=== PATIENT | female | born 1960 | race Caucasian/White ===

== ENCOUNTER → 2019-02-02 17:19 | Outpatient (CLI) | payer OTHER, SELFPAY ==
--- NOTE | 2019-02-02 17:20 | DI.MG.S_ITS ---
BILATERAL DIGITAL SCREENING MAMMOGRAM 3D/2D WITH CAD: 02/02/2019 CLINICAL: Routine screening. Family history of breast cancer. Comparison is made to exams dated: 02/13/2014 mammogram, 06/19/2008 mammogram, and 01/22/2006 mammogram - [facility]. The tissue of both breasts is extremely dense, which lowers the sensitivity of mammography. Current study was also evaluated with a Computer Aided Detection (CAD) system. No significant masses, calcifications, or other findings are seen in either breast. There has been no significant interval change. IMPRESSION: NEGATIVE There is no mammographic evidence of malignancy. A 1 year screening mammogram is recommended. This exam was interpreted at Station ID: [id number]. NOTE: For mammograms, a report in lay terms will be sent to the patient. Approximately 15% of breast malignancies will not be visualized mammographically. In the management of a palpable breast mass, a negative mammogram must not discourage biopsy of a clinically suspicious lesion. Electronically Signed By: Laney duenas/rose:02/03/2019 11:24:03 letter sent: Normal Exam ACR BI-RADS Category 1: Negative 3341F
== END ==
PROVIDERS: Family Provider Nurse Practitioner; PCP Nurse Practitioner; Visit Provider Nurse Practitioner Family
DX: Z12.31 Encounter for screening mammogram for malignant neoplasm of breast (principal); Z80.3 Family history of malignant neoplasm of breast
CPT/HCPCS: 77063; 77067

== ENCOUNTER → 2019-05-14 10:17 | Outpatient (CLI) | payer OTHER, SELFPAY | PROVIDERS: Family Provider Nurse Practitioner; PCP Nurse Practitioner; Visit Provider Nurse Practitioner | DX: R30.0 Dysuria (principal) | CPT/HCPCS: 87086 ==

== ENCOUNTER → 2020-08-13 09:53 | Outpatient (CLI) | payer OTHER, SELFPAY ==
[2020-08-13] MEDS: COVID-19 VACC #1, MRNA(MOD) 100 MCG/0.5 ML VIAL IM (10:02)
== END ==
PROVIDERS: Family Provider Nurse Practitioner; PCP Nurse Practitioner; Visit Provider Internal Medicine
DX: Z23 Encounter for immunization (principal)
CPT/HCPCS: 0011A; 91301

== ENCOUNTER → 2020-09-11 12:00 | Outpatient (CLI) | payer OTHER, SELFPAY ==
[2020-09-11] MEDS: COVID-19 VACC #2, MRNA(MOD) 100 MCG/0.5 ML VIAL IM (12:10)
== END ==
PROVIDERS: Family Provider Nurse Practitioner; PCP Nurse Practitioner; Visit Provider Internal Medicine
DX: Z23 Encounter for immunization (principal)
CPT/HCPCS: 0012A; 91301

== ENCOUNTER → 2021-02-14 17:49 | Outpatient (CLI) | payer OTHER, SELFPAY ==
--- NOTE | 2021-02-14 | DI.MG.S_ITS ---
BILATERAL DIGITAL SCREENING MAMMOGRAM 3D/2D WITH CAD: 02/14/2021 CLINICAL: Routine screening. Family history of breast cancer. Comparison is made to exams dated: 02/02/2019 mammogram, 02/13/2014 mammogram, and 06/19/2008 mammogram - [facility]. The tissue of both breasts is extremely dense, which lowers the sensitivity of mammography. Current study was also evaluated with a Computer Aided Detection (CAD) system. No significant masses, calcifications, or other findings are seen in either breast. There has been no significant interval change. IMPRESSION: NEGATIVE There is no mammographic evidence of malignancy. A 1 year screening mammogram is recommended. This exam was interpreted at Station ID: [id number]. NOTE: For mammograms, a report in lay terms will be sent to the patient. Approximately 15% of breast malignancies will not be visualized mammographically. In the management of a palpable breast mass, a negative mammogram must not discourage biopsy of a clinically suspicious lesion. Electronically Signed By: Ameya liu/rose:02/17/2021 07:14:43 letter sent: Normal Exam ACR BI-RADS Category 1: Negative 3341F
== END ==
PROVIDERS: Family Provider Nurse Practitioner; PCP Nurse Practitioner Family; Referring Provider Nurse Practitioner Family; Visit Provider Nurse Practitioner Family
DX: Z12.31 Encounter for screening mammogram for malignant neoplasm of breast (principal); Z80.3 Family history of malignant neoplasm of breast
CPT/HCPCS: 77063; 77067

== ENCOUNTER → 2021-03-29 16:28 | Outpatient (CLI) | payer OTHER, SELFPAY ==
[2021-03-29 18:06] LABS: COVID19 -Nasal RAPID Negative (Negative)
== END ==
PROVIDERS: Family Provider Nurse Practitioner; PCP Nurse Practitioner Family; Visit Provider Physician Assistant
DX: Z20.822 Contact with and (suspected) exposure to COVID-19 (principal); R09.81 Nasal congestion
CPT/HCPCS: 87635

== ENCOUNTER 2022-05-07 11:27 | Emergency (ER) | payer OTHER, SELFPAY ==
[2022-05-07 11:30] VITALS: BP 78/50; PULSE 60; RESP 15; TEMP 35.6; O2SAT 96; BMI 20.9
--- NOTE | 2022-05-07 11:34 | DI.RAD.S_ITS ---
PROCEDURE: XR WRIST LT MIN 3V INDICATIONS: fall wrist in jury TECHNIQUE: 3 views of the wrist were acquired. COMPARISON: None. FINDINGS: Bones: There is a comminuted, displaced, angulated, intra-articular fracture of the distal radius. There is a minimally displaced impacted radial styloid fracture. Soft tissues: No suspicious soft tissue calcifications. IMPRESSION: Distal radial and ulnar fractures as above. Dictated by: Laney Lopez M.D. on 05/07/2022 at 12:07 Approved by: Laney Lopez M.D. on 05/07/2022 at 12:07
[2022-05-07 12:09] VITALS: BP 109/64
[2022-05-07 14:13] VITALS: BP 126/83; PULSE 78; RESP 18; O2SAT 99
[2022-05-07 14:15] VITALS: PULSE 75
--- NOTE | 2022-05-07 15:25 | DI.RAD.S_ITS ---
PROCEDURE: XR WRIST LT 2V INDICATIONS: wrist reduction TECHNIQUE: 2 views of the wrist were acquired. COMPARISON: [facility], CR, XR WRIST LT MIN 3V, 05/07/2022, 11:30. FINDINGS: Bones: There has been interval partial reduction of the angulated comminuted distal left radial fracture. Fracture fragments are in closer approximation to anatomic alignment when compared with the prior study. Soft tissues: No suspicious soft tissue calcifications. IMPRESSION: Interval reduction of the displaced comminuted distal radial fracture. Dictated by: Laney Lopez M.D. on 05/07/2022 at 16:16 Approved by: Laney Lopez M.D. on 05/07/2022 at 16:17
--- NOTE | 2022-05-07 15:44 | ED_ITS ---
HPI - Extremity Injury (Upper) General Chief Complaint: Extremity Injury, Upper Stated Complaint: thinks she broke LT arm Time Seen by Provider: 05/07/22 14:15 Source: patient Mode of arrival: Ambulatory History of Present Illness HPI narrative: 61-year-old female nonsmoker with history of hyperlipidemia and depression presents with a friend and a chief complaint of injury suffered as a consequence of a ground level fall earlier today. She denies any prodromal symptoms such as dizziness, weakness or lightheadedness and states that she lost her balance while her left hand was caught up in the handle of a yard waste bin. As a result she fell forward onto an outstretched wrist and has pain and obvious deformity in this wrist. She denies any head, neck or back injury. She has no pain in her shoulder or elbow. Occasionally she has some tingling in the tips of her fingers. Her pain is worse when she moves and improves with rest. She denies any chest pain, shortness of breath or cough. She is had no nausea, vomiting or diarrhea Related Data Home Medications Medication Instructions Recorded Confirmed buspirone 5 mg tablet 10 mg PO DAILY 05/14/19 03/29/21 trazodone 50 mg tablet 25 mg PO HS 05/14/19 03/29/21 Previous Rx's Medication Instructions Recorded bupropion HCl 150 mg 24 hr tablet, 150 mg PO QDAY #90 tabs 12/29/16 extended release (Wellbutrin XL) fluticasone propionate 50 2 spray intranasal DAILY ##16 12/29/16 mcg/actuation nasal spray,suspension levalbuterol tartrate 45 2 puff INH Q4HP PRN #1 inh 12/29/16 mcg/actuation aerosol inhaler (Xopenex HFA) hydrocodone 5 mg-acetaminophen 325 1 tab PO Q4-6H PRN pain #20 tabs 05/07/22 mg tablet ondansetron 4 mg disintegrating 4 mg PO TID-QID PRN nausea and 05/07/22 tablet vomiting #10 tabs Allergies Allergy/AdvReac Type Severity Reaction Status Date / Time iodine Allergy Mild FROM Verified 05/07/22 11:29 SEAFOOD, RASH, EDEMA, GI UPSET latex Allergy Mild RASH Verified 05/07/22 11:29 Review of Systems Review of Systems Narrative: GENERAL: Denies chills, fatigue, malaise, fever, sweats. HEENT: Denies sinus pain, ear pain, sore throat, difficulty swallowing, dizziness. RESPIRATORY: Denies dyspnea, cough, wheezing, hemoptysis, sputum. CARDIOVASCULAR: Denies chest pain, palpitations, orthopnea, edema, GASTROINTESTINAL: Denies nausea, vomiting, abdominal pain, diarrhea, constipation, melena. : Denies dysuria, frequency, incontinence, hematuria, urinary retention. MUSCULOSKELETAL: See HPI SKIN: Denies rash, skin lesions, or other NEUROLOGIC: Denies weakness, headache, numbness, change in speech, confusion, seizures, incoordination. PSYCHIATRIC: No concerning psychosocial issues. 12 point review of systems is negative except for those stated above Patient History Medical History (Updated 05/07/22 @ 15:56 by Steven Delgado DO) Anorexia nervosa (1969) Anxiety (1970) Arthritis (2006) Asthma (1995) Chicken pox (1964) Chronic back pain (1972) Depression (1970) Frequent UTI (~1979) Genital warts (1983) Measles (1965) Mumps (1966) Osteoporosis (2013) Recurrent sinusitis (1995) Scoliosis (1972) Substance abuse (1975) Surgical History Anesthesia History of colonoscopy (02/12/14) History of dilation and curettage (12/31/14) History of elective History of shoulder surgery (03/2006) History of third molar tooth extraction Status post breast lumpectomy (03/2006) Status post surgery (12/31/14) Family History Father Heart disease COPD (chronic obstructive pulmonary disease) Mother Diabetes mellitus Brother No problems noted. Sister No problems noted. Sister No problems noted. Sister No problems noted. Sister No problems noted. Sister No problems noted. Grandfather No problems noted. Grandmother No problems noted. Grandfather No problems noted. Grandmother Cancer Social History Smoking Status: Former smoker Smoking Status: Former smoker alcohol intake frequency: holidays/special occasions only Substance Use Type: does not use Exam Narrative Exam Narrative: GENERAL: [61] year old patient appears stated age. Well-developed patient, in mild distress. Clutching her left wrist HEAD: Atraumatic. Normocephalic. EYES: Pupils equal round and reactive. Extraocular motions intact. No scleral icterus. No injection or drainage. ENT: Nose without bleeding, purulent drainage. Throat without erythema, tonsillar hypertrophy or exudate. Airway patent. NECK: Trachea midline. Non tender CARDIOVASCULAR: Regular rate and rhythm without murmurs, gallops, or rubs. RESPIRATORY: Clear to auscultation. Breath sounds equal bilaterally. No wheezes, rales, or rhonchi. GASTROINTESTINAL: Abdomen soft, non-tender, nondistended. EXTREMITIES: Obvious deformity of left wrist consistent with distal radius fracture, tenderness over this region, this is closed, isolated and neurovascularly intact, no pain in elbow or shoulder, compartments soft BACK: Nontender without deformity or crepitance. No flank tenderness. NEURO: AOx3. SKIN: No rash or erythema of visible areas Initial Vital Signs Initial Vital Signs: Vital Signs Temperature 96.0 F L 05/07/22 11:30 Pulse Rate 60 05/07/22 11:30 Respiratory Rate 15 05/07/22 11:30 Blood Pressure 78/50 L 05/07/22 11:30 Pulse Oximetry 96 05/07/22 11:30 Oxygen Delivery Method 05/07/22 11:30 Procedures Nerve Block Nerve Block 1: Time out performed: Yes Local Anesthetic: bupivacaine 0.25% and with epi Amount of anesthesia used (mL): 6 Side: left Nerve Blocks: hematoma block Procedure Successful: Yes Patient Tolerated Procedure: Well Complications: none Orthopedic Fracture Reduction Fracture #1: Time Out Performed: Yes Side: left Fracture Reduction Location: radius and ulna Analgesia: hematoma block Technique: direct manipulation and traction/counter-traction Post Reduction X-rays Demonstrate: acceptable reduction Post-reduction neuro exam: intact Post-reduction vascular exam: intact Splint Applied: Yes Patient Tolerated Procedure: Well Orthopedic Splinting/Casting Injury #1: Side: left Upper Extremity Injury Location: wrist Upper Extremity Immobilizer: sugar tong splint Post splinting neuro exam: intact Post splinting vascular exam: intact Placed by: Nursing Course Orders Ordered: ED Orders 05/07/22 11:34 XR wrist LT min 3V Stat 05/07/22 15:25 XR wrist LT 2V Stat Vital Signs Vital signs: Vital Signs - 8 hr 05/07/22 11:30 05/07/22 12:09 12/15/22 14:13 Temperature 96.0 F L Pulse Rate 60 78 Pulse Rate [Left Radial] Respiratory Rate 15 18 Blood Pressure 78/50 L 109/64 126/83 Pulse Oximetry 96 99 Oxygen Delivery Method Room Air Room Air 05/07/22 14:15 Temperature Pulse Rate Pulse Rate [Left Radial] 75 Respiratory Rate Blood Pressure Pulse Oximetry Oxygen Delivery Method MDM - Extremity Injury (Upper) MDM Narrative Medical decision making narrative: 61-year-old female nonsmoker with history of hyperlipidemia and depression presents with a friend and a chief complaint of injury suffered as a consequence of a ground level fall earlier today. Imaging reviewed: obvious fracture, postreduction films demonstrate improvement, however patient will likely still needs surgery, she understands this Patient splinted and placed in sling. She remains neurovascularly intact. This injury is closed, compartments are soft, pain well controlled Patient's symptoms improved over duration of stay with above-stated therapies. Findings and discharge diagnosis discussed with patient/family followed by verbalization of understanding Return precautions discussed with patient/family whom verbalize understanding of diagnosis and plan Discharge Plan Departure Patient Disposition: Home Clinical Impression: Closed fracture distal radius and ulna Instructions: DI for Distal Radius Fracture Activity Restrictions/Additional Instructions: *You have been diagnosed with [left distal radius and ulna fractures] *What to do: *Please continue to take your regular medications as directed. [x ] New medication prescriptions sent to your pharmacy: [[facility] ] [ ] New medication written as a paper prescription [x] Tylenol and occasional Motrin for pain *Please follow up with [ Lita] of [facility] in 2-3 days, call for an appointment. Let them know you were seen in the Emergency Department and that we ask that you be seen in follow up. We will electronically transmit a record of today's note if your PCP is in our system *Return to Emergency Department if you should have any new, worsening or concerning symptoms, such as [worsening pain, significant swelling, cold extremities, numbness, tingling, weakness or other bothersome symptoms Splint Care: Keep splint clean and dry. Elevated affected body part to decrease swelling. OK to use ice pack on the affected body part. Use for 15-20 minutes each time, for 5-6x per day. If you develop worsening pain, numbness, tingling, discoloration of the affected body part, loosen the splint by loosening the MAYRA wrap, and either see your doctor for an urgent re-assessment, or return to the Emergency Department. Return to the Emergency Department for any new or worsening symptoms. Prescriptions: New hydrocodone-acetaminophen 5-325 mg tablet 1 tab PO Q4-6H PRN (Reason: pain) Qty: 20 0RF ondansetron 4 mg tablet,disintegrating 4 mg PO TID-QID PRN (Reason: nausea and vomiting) Qty: 10 0RF No Action buspirone 5 mg tablet 10 mg PO DAILY trazodone 50 mg tablet 25 mg PO HS fluticasone propionate 16 GM spray,suspension 2 spray Intranasal DAILY Qty: 16 3RF bupropion HCl [Wellbutrin XL] 150 MG tablet extended release 24 hr 150 mg PO QDAY Qty: 90 3RF levalbuterol tartrate [Xopenex HFA] 45 MCG/INH HFA aerosol inhaler 2 puff INH Q4HP PRNQty: 1 3RF Referrals: Lisha London MD [Physician] - Ophelia Nicole ARNP [Primary Care Provider] - Visit Report Forms: Patient Portal/API
[2022-05-07 16:06] VITALS: BP 113/74; PULSE 61; RESP 18; O2SAT 96
== END 2022-05-07 16:10 | disposition home or self-care (01) ==
PROVIDERS: Emergency Provider Emergency Medicine; Family Provider Nurse Practitioner; PCP Nurse Practitioner Family
DX: S52.502A Unspecified fracture of the lower end of left radius, initial encounter for closed fracture (principal); S52.602A Unspecified fracture of lower end of left ulna, initial encounter for closed fracture; W18.30XA Fall on same level, unspecified, initial encounter
CPT/HCPCS: 25605; 29105; 64450; 73100; 73110; 99283

== ENCOUNTER → 2022-06-10 12:46 | Outpatient (CLI) | payer OTHER, SELFPAY ==
--- NOTE | 2022-06-10 | DI.MG.S_ITS ---
BILATERAL DIGITAL SCREENING MAMMOGRAM 3D/2D WITH CAD: 06/10/2022 CLINICAL: Routine screening. Family history of breast cancer. Comparison is made to exams dated: 02/14/2021 mammogram, 02/02/2019 mammogram, and 02/13/2014 mammogram - [facility]. Both breasts are heterogeneously dense, which may obscure small masses (category c / 51-75% glandular tissue). Current study was also evaluated with a Computer Aided Detection (CAD) system. There are benign post operative findings in the right breast. No significant masses, calcifications, or other findings are seen in either breast. There has been no significant interval change. IMPRESSION: BENIGN There is no mammographic evidence of malignancy. A 1 year screening mammogram is recommended. Based on Tyrer-Cuzick model (a risk assessment model), the patient's lifetime risk is 20.1% and her 10 year risk is 9.1%. If a patient has an elevated risk, a more comprehensive evaluation should be considered and/or a referral to a genetic counselor. The [place] [employer], [place] [employer], and NCCN Guidelines advise the consideration of Breast MRI as an adjunct to screening mammography in patients whose Lifetime risk to develop breast cancer is 20% or higher. This exam was interpreted at Station ID: [id number]. NOTE: For mammograms, a report in lay terms will be sent to the patient. Approximately 15% of breast malignancies will not be visualized mammographically. In the management of a palpable breast mass, a negative mammogram must not discourage biopsy of a clinically suspicious lesion. Electronically Signed By: Laney duenas/rose:06/10/2022 15:03:25 copy to: Ophelia Nicole letter sent: Normal Exam ACR BI-RADS Category 2: Benign Finding(s) 3342F
== END ==
PROVIDERS: Family Provider Nurse Practitioner; PCP Nurse Practitioner; Referring Provider Nurse Practitioner; Visit Provider Nurse Practitioner
DX: Z12.31 Encounter for screening mammogram for malignant neoplasm of breast (principal); Z80.3 Family history of malignant neoplasm of breast
CPT/HCPCS: 77063; 77067

== ENCOUNTER → 2022-07-06 12:14 | Outpatient (CLI) | payer OTHER, SELFPAY | PROVIDERS: Family Provider Nurse Practitioner; PCP Nurse Practitioner; Referring Provider Orthopaedic Surgery Foot and Ankle Surgery; Visit Provider Orthopaedic Surgery Foot and Ankle Surgery | DX: M81.0 Age-related osteoporosis without current pathological fracture (principal); Z87.310 Personal history of (healed) osteoporosis fracture; Z78.0 Asymptomatic menopausal state | CPT/HCPCS: 77080 ==

== ENCOUNTER → 2023-04-05 07:56 | Outpatient (CLI) | payer OTHER, SELFPAY ==
[2023-04-05 08:55] LABS: Add Manual Diff / Slide Review NO; Basophils Absolute Auto 100 /uL (0-100); Basophils Percent Auto 0.9 % (0-2); Eosinophils Absolute Auto 0 /uL (0-450); Eosinophils Percent Auto 0.6 % (2-4); Hematocrit 39.6 % (36-46); Hemoglobin 13.3 g/dL (12.0-16.0); Lymphocytes Absolute Auto 2100 /uL (1100-4500); Mean Corpuscular HGB Conc 33.7 % (30-36); Mean Corpuscular Hemoglobin 32.2 PG (26-34); Mean Corpuscular Volume 95.6 fL (80-100); Monocytes Absolute Auto 600 /uL (0-900); Monocytes Percent Auto 9.1 % (3-14); Neutrophils Absolute Auto 3900 /uL (1500-7000); Neutrophils Percent Auto 58.4 % (50-75); Platelet Count 512 X10^3/uL (150-400); Red Blood Cell Count 4.15 X10^6/uL (4.0-5.2); Red Cell Distribution Width 12.9 % (11.6-14.8); White Blood Cell Count 6.7 X10^3/uL (4.5-11.0)
[2023-04-05 09:06] LABS: Hemoglobin A1C% w Est Avg Glu 5.6 % (4.0-6.0)
[2023-04-05 09:45] LABS: Alanine Aminotransferase 14 IU/L (<35); Albumin Globulin Ratio 1.3 (1.0-2.8); Alkaline Phosphatase 63 U/L (38-126); Aspartate Aminotransferase 24 IU/L (14-36); BUN Creatinine Ratio 18.1 (6-22); Bilirubin Total 0.7 mg/dL (0.2-1.3); Blood Urea Nitrogen 15 mg/dL (7-17); Calcium 9.9 mg/dL (8.4-10.2); Carbon Dioxide 30 mmol/L (22-32); Chloride 101 mmol/L (98-107); Estimated Glomerular Filt Rate > 60 mL/min (>60); Globulin 3.1 g/dL (1.7-4.1); Glucose 85 mg/dL (80-110); HEMOLYSIS < 15 (0-50); Potassium 4.8 mmol/L (3.4-5.1); Sodium 138 mmol/L (137-145); Total Protein 7.1 g/dL (6.3-8.2)
== END ==
PROVIDERS: Family Provider Nurse Practitioner; PCP Nurse Practitioner; Referring Provider Ophthalmology; Visit Provider Ophthalmology
DX: H53.8 Other visual disturbances (principal); Z83.3 Family history of diabetes mellitus; H53.9 Unspecified visual disturbance; H04.123 Dry eye syndrome of bilateral lacrimal glands
CPT/HCPCS: 36415; 80053; 83036; 84443; 85025; 86140

== ENCOUNTER → 2023-07-23 09:12 | Outpatient (CLI) | payer OTHER, SELFPAY ==
--- NOTE | 2023-07-23 09:13 | DI.MG.S_ITS ---
BILATERAL DIGITAL SCREENING MAMMOGRAM 3D/2D WITH CAD: 07/23/2023 CLINICAL: Routine screening. Family history of breast cancer. Comparison is made to exams dated: 06/10/2022 mammogram, 02/14/2021 mammogram, and 02/02/2019 mammogram - [facility]. Both breasts are heterogeneously dense, which may obscure small masses (category c / 51-75% glandular tissue). Current study was also evaluated with a Computer Aided Detection (CAD) system. There is a focal asymmetry in the left breast at 5 o'clock anterior depth. No other significant masses, calcifications, or other findings are seen in either breast. IMPRESSION: INCOMPLETE: NEEDS ADDITIONAL IMAGING EVALUATION The focal asymmetry in the left breast is indeterminate. Additional views with possible ultrasound are recommended. Based on the Tyrer Cuzick model (a risk assessment model) the patient's lifetime risk is 19.6% and her 10 year risk is 9.1%. According to the ACR, ACS, and NCCN guidelines, an annual breast MRI exam along with mammogram is recommended if the patient's lifetime risk is 20% or greater. This exam was interpreted at Station ID: [id number]. NOTE: For mammograms, a report in lay terms will be sent to the patient. Approximately 15% of breast malignancies will not be visualized mammographically. In the management of a palpable breast mass, a negative mammogram must not discourage biopsy of a clinically suspicious lesion. Electronically Signed By: Laney duenas/rose:07/23/2023 12:13:26 copy to: Ophelia Nicole letter sent: Additional Imaging Needed ACR BI-RADS Category 0: Incomplete 3340F
== END ==
LOC: MAMMO 09:13
PROVIDERS: Family Provider Nurse Practitioner; PCP Nurse Practitioner; Referring Provider Nurse Practitioner; Visit Provider Nurse Practitioner
DX: Z12.31 Encounter for screening mammogram for malignant neoplasm of breast (principal); Z80.3 Family history of malignant neoplasm of breast; R92.333 Mammographic heterogeneous density, bilateral breasts
CPT/HCPCS: 77063; 77067

== ENCOUNTER → 2023-09-22 11:16 | Outpatient (CLI) | payer OTHER, SELFPAY ==
--- NOTE | 2023-09-22 11:17 | DI.MG.S_ITS ---
UNILATERAL LEFT DIGITAL DIAGNOSTIC MAMMOGRAM 3D/2D WITH ADDITIONAL VIEWS: 09/22/2023 CLINICAL: Additional evaluation requested from prior study. Comparison is made to exams dated: 07/23/2023 mammogram, 06/10/2022 mammogram, 02/14/2021 mammogram, and 02/02/2019 mammogram - [facility]. The left breast is heterogeneously dense, which may obscure small masses (category c / 51-75% glandular tissue). There is a focal asymmetry in the left breast at 5 o'clock anterior depth. This is seen in additional views. No other significant masses or calcifications are seen in the breast. IMPRESSION: INCOMPLETE: NEEDS ADDITIONAL IMAGING EVALUATION The focal asymmetry in the left breast is indeterminate. A targeted ultrasound of the left breast is recommended and will be performed immediately following this exam. Based on the Tyrer Cuzick model (a risk assessment model) the patient's lifetime risk is 19.6% and her 10 year risk is 9.1%. According to the ACR, ACS, and NCCN guidelines, an annual breast MRI exam along with mammogram is recommended if the patient's lifetime risk is 20% or greater. This exam was interpreted at Station ID: [id number]. NOTE: For mammograms, a report in lay terms will be sent to the patient. Approximately 15% of breast malignancies will not be visualized mammographically. In the management of a palpable breast mass, a negative mammogram must not discourage biopsy of a clinically suspicious lesion. Electronically Signed By: Laney Lopez M.D. lk/:09/22/2023 12:45:06 copy to: Ophelia Nicole ACR BI-RADS Category 0: Incomplete 3340F
--- NOTE | 2023-09-22 11:17 | DI.US.S_ITS ---
PROCEDURE: US BREAST LT LIMITED COMPARISON: None. INDICATIONS: ADD VIEW LT BREAST FINDINGS: IMPRESSION: Dictated by: Laney Lopez M.D. on 09/22/2023 at 14:02 Approved by: Laney Lopez M.D. on 09/22/2023 at 14:03
--- NOTE | 2023-09-22 12:59 | DI.US.S_ITS ---
Patient Name: LATASHA NICOLE date: 1960 Sex: F Attending Physician: Arminda Indications: Date: 09/22/2023 14:03 At the request of: SABRINA JORDAN Procedure: US breast LT limited LIMITED ULTRASOUND OF LEFT BREAST: 09/22/2023 CLINICAL: Patient returns for additional imaging over a suspected mass in the left breast. Palpable left breast lump. Additional evaluation requested from prior study. Comparison is made to exams dated: 09/22/2023 mammogram, 07/23/2023 mammogram, 06/10/2022 mammogram, 02/14/2021 mammogram, 02/02/2019 mammogram, and 02/13/2014 mammogram - [facility]. Color flow and real-time ultrasound of the left breast 5 o'clock region were performed on the areas of interest. There is an irregular mass in the left breast at 5 o'clock anterior depth. This irregular mass is heterogeneously echogenic. This correlates with mammography findings. The left axilla was interogated and normal appearing lymph nodes are visualized. IMPRESSION: SUSPICIOUS OF MALIGNANCY No left axillary adenopathy. The irregular mass in the left breast is at a low suspicion for malignancy. An ultrasound guided biopsy is recommended. This exam was interpreted at Station ID: [id number]. SUMMARY: This was discussed with the patient by the radiologist Dr. Garcia at the time of the exam. Electronically Signed By: Laney Lopez M.D. Continued Report - Page 2 of 2 Patient Name: LATASHA NICOLE date: 1960 Sex: F Attending Physician: Arminda Indications: Date: 09/22/2023 14:03 At the request of: SABRINA JORDAN Procedure: US breast LT limited lk/:09/22/2023 14:03:05 copy to: Ophelia Nicole letter sent: Biopsy Required Ultrasound BI-RADS: 4a Low suspicion for malignancy
== END ==
LOC: MAMMO 11:16
PROVIDERS: Family Provider Nurse Practitioner; PCP Family Medicine; Referring Provider Nurse Practitioner; Visit Provider Nurse Practitioner
DX: R92.2 Inconclusive mammogram (principal); R92.332 Mammographic heterogeneous density, left breast; N64.89 Other specified disorders of breast; N63.23 Unspecified lump in the left breast, lower outer quadrant
CPT/HCPCS: 76642; 77065; G0279